=== PATIENT | male | born 1990 | race American Indian/Alaskan Native ===

== ENCOUNTER 2019-07-04 15:55 | Inpatient (IN) | payer OTHER ==
[2019-07-04] MEDS ORDERED: ATROVENT IH ONE ×2 (16:06→16:35)
[2019-07-04] MEDS ORDERED: PROVENTIL IH ONE ×3 (16:06→18:43)
[2019-07-04] MEDS ORDERED: MAGNESIUM SULFATE 2GM/50ML 2 GM/50 ML BAG IV ONE (16:28)
[2019-07-04] MEDS ORDERED: SOLU-Medrol IV ONE (16:28)
[2019-07-04] MEDS ORDERED: TESSALON PERLES PO ONE (16:36)
--- NOTE | 2019-07-04 17:19 | Emergency Department Report ---
ED Asthma HPI - General Chief Complaint: Adult Asthma Stated Complaint: ASTHMA ATTACK Time Seen by Provider: 07/04/19 16:27 Source: patient Mode of arrival: Ambulatory Limitations: No Limitations - History of Present Illness Initial Comments: 28-year-old male with a past medical history asthma presents to the hospital complains asthma exacerbation since last night. Patient developed a dry cough and had increased wheezing and bronchospasm throughout the day not alleviated by home nebs or inhaler treatment. Patient's room air saturations 87 to 93% upon arrival. Patient denies fever, pain, calf tenderness, leg edema, or recent travel. He has tried BiPAP support hospitalization has denies previous history of intubations. PMD: [facility] practice - Related Data Allergies Allergy/AdvReac Type Severity Reaction Status Date / Time No Known Allergies Allergy Unverified 07/04/19 15:57 ED Review of Systems ROS: Stated complaint: ASTHMA ATTACK Other details as noted in HPI Comment: All other systems reviewed and negative ED Past Medical Hx - Past Medical History Previous Medical History?: Yes Hx Asthma: Yes - Surgical History Past Surgical History?: No - Social History Smoking Status: Never Smoker Substance Use Type: None ED Physical Exam - General Limitations: No Limitations General appearance: alert - Head Head exam: Present: atraumatic - Eye Eye exam: Present: normal appearance - ENT ENT exam: Present: normal exam - Neck Neck exam: Present: normal inspection - Respiratory Respiratory exam: Present: wheezes. Absent: chest wall tenderness - Cardiovascular Cardiovascular Exam: Present: regular rate, tachycardia - GI/Abdominal GI/Abdominal exam: Present: soft. Absent: distended, tenderness - Extremities Exam Extremities exam: Present: normal inspection. Absent: tenderness, calf tenderness - Back Exam Back exam: Present: normal inspection - Neurological Exam Neurological exam: Present: alert, oriented X3. Absent: motor sensory deficit - Psychiatric Psychiatric exam: Present: normal affect - Skin Skin exam: Present: warm ED Course Vital Signs 07/04/19 07/04/19 07/04/19 15:57 16:38 16:45 Temperature 98.6 F 99.8 F H Pulse Rate 122 H 111 H Pulse Rate [ Anterior Bilateral Throughout] Respiratory 26 H 26 H Rate Respiratory Rate [Anterior Bilateral Throughout] Blood Pressure 185/85 Blood Pressure 194/100 [Right] O2 Sat by Pulse 87 87 94 Oximetry 07/04/19 07/04/19 07/04/19 17:00 18:01 19:14 Temperature Pulse Rate 106 H Pulse Rate [ 110 H Anterior Bilateral Throughout] Respiratory 28 H Rate Respiratory 15 Rate [Anterior Bilateral Throughout] Blood Pressure 185/85 171/85 Blood Pressure [Right] O2 Sat by Pulse 95 90 Oximetry 07/04/19 19:15 Temperature 99.2 F Pulse Rate 104 H Pulse Rate [ Anterior Bilateral Throughout] Respiratory 20 Rate Respiratory Rate [Anterior Bilateral Throughout] Blood Pressure Blood Pressure 145/81 [Right] O2 Sat by Pulse 94 Oximetry ED Medical Decision Making - Lab Data Result diagrams: 07/04/19 19:02 07/04/19 19:02 Lab Results 07/04/19 07/04/19 07/04/19 Range/Units 19:02 19:02 19:02 WBC 12.3 H (4.5-11.0) K/mm3 RBC 5.18 H (3.65-5.03) M/mm3 Hgb 14.9 (11.8-15.2) gm/dl Hct 44.6 (35.5-45.6) % MCV 86 (84-94) fl MCH 29 (28-32) pg MCHC 33 (32-34) % RDW 14.7 (13.2-15.2) % Plt Count 298 (140-440) K/mm3 [place] % (Auto) 2.1 (0.0-7.3) % Eos % (Auto) 0.1 (0.0-4.3) % [place] # 0.3 (0.0-0.8) K/mm3 Eos # 0.0 (0.0-0.4) K/mm3 Baso # 0.0 (0.0-0.1) K/mm3 Seg Neutrophils # 11.4 H (1.8-7.7) K/mm3 VBG pH 7.386 (7.320-7.420) Sodium (137-145) mmol/L Potassium (3.6-5.0) mmol/L Chloride (98-107) mmol/L Carbon Dioxide (22-30) mmol/L Anion Gap mmol/L BUN (9-20) mg/dL Creatinine (0.8-1.5) mg/dL Estimated GFR ml/min BUN/Creatinine Ratio % Glucose (75-100) mg/dL Lactic Acid 4.20 H* (0.7-2.0) mmol/L Calcium (8.4-10.2) mg/dL 07/04/19 Range/Units 19:02 WBC (4.5-11.0) K/mm3 RBC (3.65-5.03) M/mm3 Hgb (11.8-15.2) gm/dl Hct (35.5-45.6) % MCV (84-94) fl MCH (28-32) pg MCHC (32-34) % RDW (13.2-15.2) % Plt Count (140-440) K/mm3 [place] % (Auto) (0.0-7.3) % Eos % (Auto) (0.0-4.3) % [place] # (0.0-0.8) K/mm3 Eos # (0.0-0.4) K/mm3 Baso # (0.0-0.1) K/mm3 Seg Neutrophils # (1.8-7.7) K/mm3 VBG pH (7.320-7.420) Sodium 139 (137-145) mmol/L Potassium 3.9 (3.6-5.0) mmol/L Chloride 98.2 (98-107) mmol/L Carbon Dioxide 23 (22-30) mmol/L Anion Gap 22 mmol/L BUN 10 (9-20) mg/dL Creatinine 0.8 (0.8-1.5) mg/dL Estimated GFR > 60 ml/min BUN/Creatinine Ratio 13 % Glucose 100 (75-100) mg/dL Lactic Acid (0.7-2.0) mmol/L Calcium 9.9 (8.4-10.2) mg/dL - Radiology Data Radiology results: report reviewed CHEST 2 VIEWS INDICATION / CLINICAL INFORMATION: sob, wheeze. COMPARISON: None available. FINDINGS: SUPPORT DEVICES: None. HEART / MEDIASTINUM: No significant abnormality. LUNGS / PLEURA: Lungs are mildly hyperinflated. There is focal parenchymal disease projecting within the left lung base worrisome for pneumonia. No pleural effusion. No pneumothorax. ADDITIONAL FINDINGS: No significant additional findings. IMPRESSION: 1. Findings concerning for the possibility of left basilar pneumonia. 2. Lungs are hyperinflated suggesting asthma/COPD. - Medical Decision Making pt will be admitted for further tx pt received nebs, mag, solumedrol and continues to have wheezing and require nasal cannula o2 for hypoxia pt received azithromycin and rocephin culture pending elevated lactic acid, 30ml/kg - Differential Diagnosis asthma, pneumonia, bronchitis, pneumothorax Critical Care Time: No Critical care attestation.: If time is entered above; I have spent that time in minutes in the direct care of this critically ill patient, excluding procedure time. ED Disposition Clinical Impression: Pneumonia, Acute asthma exacerbation, Hypoxia Disposition: OP ADMIT IP TO THIS HOSP Is pt being admited?: Yes Does the pt Need Aspirin: No Condition: Stable Time of Disposition: 20:29 (case d/w Dr man at 9:07)
--- NOTE | 2019-07-04 17:32 | XRay Report ---
CHEST 2 VIEWS INDICATION / CLINICAL INFORMATION: sob, wheeze. COMPARISON: None available. FINDINGS: SUPPORT DEVICES: None. HEART / MEDIASTINUM: No significant abnormality. LUNGS / PLEURA: Lungs are mildly hyperinflated. There is focal parenchymal disease projecting within the left lung base worrisome for pneumonia. No pleural effusion. No pneumothorax. ADDITIONAL FINDINGS: No significant additional findings. IMPRESSION: 1. Findings concerning for the possibility of left basilar pneumonia. 2. Lungs are hyperinflated suggesting asthma/COPD. Signer Name: Anastasia Almonte MD Signed: 07/04/2019 5:27 PM Workstation Name: [id number]
[2019-07-04] MEDS ORDERED: ZITHROMAX PO ONE (17:41)
[2019-07-04 19:26] LABS: Hematocrit 44.6 % (35.5-45.6); Hemoglobin 14.9 gm/dl (11.8-15.2); Mean Corpuscular HGB Conc 33 % (32-34); Mean Corpuscular Volume 86 fl (84-94); Platelet Count 298 K/mm3 (140-440); Red Blood Count 5.18 M/mm3 (3.65-5.03); Red Cell Distribution Width 14.7 % (13.2-15.2)
[2019-07-04] MEDS ORDERED: NACL 0.9% 1000 ML IV ONE (20:02)
[2019-07-04] MEDS ORDERED: ROCEPHIN/NS 1 GM/50 ML 1 GM/50 ML BAG IV ONE (20:03)
[2019-07-04] MEDS ORDERED: NACL 0.9% 500 ML 500 ML ONE (20:08)
[2019-07-04 20:09] LABS: Eosinophils % (Auto) 0.1 % (0.0-4.3); Monocytes # (Auto) 0.3 K/mm3 (0.0-0.8); Monocytes % (Auto) 2.1 % (0.0-7.3)
[2019-07-04 20:41] LABS: BUN/Creatinine Ratio 13; Blood Urea Nitrogen 10 mg/dL (9-20); Calcium 9.9 mg/dL (8.4-10.2); Hemolysis Index 4
--- NOTE | 2019-07-04 21:45 | History and Physical Report ---
History of Present Illness Date of examination: 07/04/19 History of present illness: 28 year old man with history of asthma comes emergency room with complaints of shortness of breath started last night, cough productive of yellow phlegm, chills. He state that is nebulizer treatments did not provide much relief eview Of Systems: Constitutional: no weight loss, fever, chills Ears, eyes, nose, mouth and throat: no nasal congestion, no nasal discharge, no sinus pressure, blurry vision, diplopia Neck: No neck pain or rigidity. Cardiovascular: No palpitations, chest pain Respiratory: + shortness of breath, cough Gastrointestinal: No hematochezia, abdominal pain Genitourinary : no dysuria, frequency , hematuria Musculoskeletal: no muscle ache , joint pain Integumentary: no rash, no pruritis Neurological: no parathesias, focal weakness Endocrine: no cold or heat intolerance, no polyuria or polydipsia Hematologic/Lymphatic: no easy bruising, no easy bleeding, no gland swelling Allergic/Immunologic: no urticaria, no angioedema. PAST MEDICAL HISTORY:asthma PAST SURGICAL HISTORY: foot Surgery FAMILY HISTORY:hypertension, diabetes SOCIAL HISTORY: Denies tobacco, drugs, social alcohol Medications and Allergies Allergies Allergy/AdvReac Type Severity Reaction Status Date / Time No Known Allergies Allergy Unverified 07/04/19 15:57 Exam - Physical Exam Narrative exam: General Apperance: The patient sitting in bed no acute distress HEENT: Normocephalic, atraumatic. Pupils equally round and reactive to light, extraocular movement intact, and no sclericterus or JVD or thyromegaly or nodule. Neck supple, no carotid bruit, mucous membranes moist, no exudate or erythema Heart: S1-S2, regular is rhythm Lungs: wheezing bilaterally, breathing comfortable Abdomen: Positive bowel sounds, soft, nontender, nondistended, no organomegaly Extremities: No edema cyanosis clubbing Skin: no rash, nodule, warm and dry Neuro:CN 2 -12 intact, motor/sensory intact, speech is fluent - Constitutional Vitals: Temp Pulse Resp BP Pulse Ox 99.2 F 104 H 20 145/81 94 07/04/19 19:15 07/04/19 19:15 07/04/19 19:15 07/04/19 19:15 07/04/19 19:15 Results - Labs CBC & Chem 7: 07/04/19 19:02 07/04/19 19:02 Labs: Abnormal lab results 07/04/19 07/04/19 Range/Units 19:02 19:02 WBC 12.3 H (4.5-11.0) K/mm3 RBC 5.18 H (3.65-5.03) M/mm3 Seg Neutrophils # 11.4 H (1.8-7.7) K/mm3 Lactic Acid 4.20 H* (0.7-2.0) mmol/L - Imaging and Cardiology Chest x-ray: report reviewed Assessment and Plan Assessment Asthma exacerbation Community-acquired pneumonia Plan Admit to medicine Start high-dose steroids, nebulizer treatments,levaquin DVT prophylaxis
[2019-07-04] MEDS ORDERED: SODIUM CHLORIDE FLUSH SYRINGE 10 ML IV PRN (22:17)
[2019-07-04] MEDS ORDERED: ZOFRAN IV PRN (22:17)
[2019-07-04] MEDS ORDERED: TYLENOL PO PRN (22:17)
[2019-07-04 22:32] LABS: Basophils % (Manual) 0 % (0.0-1.8); Eosinophils % (Manual) 0 % (0.0-4.3); Large Platelets 1+; Platelet Estimate Consistent w Auto; RBC Morphology Normal; Total Cells Counted 100
[2019-07-04] MEDS ORDERED: SOLU-Medrol ONE (22:34)
[2019-07-04] MEDS ORDERED: DUONEB *Not for PRN Use IH ONE (23:05)
[2019-07-04] MEDS: DUONEB *Not for PRN Use IH SCH (23:05)
[2019-07-05] MEDS: DUONEB *Not for PRN Use IH SCH ×4 (01:42→20:41)
[2019-07-05] MEDS: TESSALON PERLES PO PRN ×2 (02:02→17:13)
[2019-07-05 05:22] LABS: Mean Corpuscular HGB Conc 34 % (32-34); Mean Corpuscular Volume 85 fl (84-94); Platelet Count 293 K/mm3 (140-440); Red Blood Count 4.82 M/mm3 (3.65-5.03); Red Cell Distribution Width 14.7 % (13.2-15.2)
[2019-07-05 05:34] LABS: BUN/Creatinine Ratio 14; Blood Urea Nitrogen 10 mg/dL (9-20); Calcium 8.7 mg/dL (8.4-10.2); Hemolysis Index 0
[2019-07-05 06:19] LABS: Total Cells Counted 100
[2019-07-05 06:20] LABS: Basophils % (Manual) 0 % (0.0-1.8); Eosinophils % (Manual) 0 % (0.0-4.3); Platelet Estimate Consistent w Auto; RBC Morphology Normal
[2019-07-05] MEDS ORDERED: PROVENTIL IH ONE (08:15)
[2019-07-05] MEDS: LEVAQUIN 750MG/150ML 750 MG/150 ML BAG IV SCH (09:37)
[2019-07-05] MEDS: LOVENOX SUB-Q SCH (09:38)
[2019-07-05] MEDS: SODIUM CHLORIDE FLUSH SYRINGE 10 ML IV SCH ×2 (09:39→22:00)
[2019-07-05] MEDS ORDERED: LEVAQUIN PO SCH (10:00)
[2019-07-05] MEDS ORDERED: SOLU-Medrol IV SCH ×2 (10:00→23:00)
[2019-07-05] MEDS: MUCINEX ER PO SCH ×2 (13:37→22:00)
--- NOTE | 2019-07-05 15:19 | Progress Note ---
Assessment and Plan Acute hypoxic respiratory failure, POA - O2 saturation 87% on room air on admission - Due to acute asthma exacerbation and pneumonia Acute Asthma exacerbation Community-acquired pneumonia with sepsis, POA - Presented with leukocytosis, tachycardia, lactic acidosis and focal left basilar pneumonia HTN, uncontrolled DVT prophylaxis plan: -Continue to monitor patient admitted to [facility] - provide scheduled nebulizer breathing treatment and as needed - Placed on empiric steroid and antibiotic - will follow sputum culture, chest x-ray showed left basilar lobe pneumonia - Provide supplemental oxygen to keep oxygen saturation above 92% - Monitor BP, placed on Norvasc - Provide DVT prophylaxis with Lovenox. Brief History: 28 year old man with history of asthma comes emergency room with complaints of shortness of breath started last night, cough productive of yellow phlegm, chills. He state that is nebulizer treatments did not provide much relief. Radiological data: Chest x-ray: 1. Findings concerning for the possibility of left basilar pneumonia. 2. Lungs are hyperinflated suggesting asthma/COPD. Hospitalist Physical exam: GENERAL: well-developed and well-nourished AAM lying on bed appeared to be in no discomfort. HEENT: Normocephalic. Atraumatic. No conjunctival congestion or icterus. Patient has moist mucous membranes. NECK: Supple. Trachea midline. CHEST/LUNGS: diffuse wheezes auscultated bilaterally, breathing nonlabored. No crackles or rhonchi. HEART/CARDIOVASCULAR: Regular in rate and rhythm. S1 and S2 positive. ABDOMEN: Abdomen is soft, nontender. Patient has normal bowel sounds. SKIN: There is no rash. Warm and dry. NEURO: No focal motor deficit. Follows command. MUSCULOSKELETAL: No joint effusion or tenderness. EXTRIMITY: No edema, no cyanosis or clubbing. PSYCH: Cooperative. Subjective Date of service: 07/05/19 Interval history: Patient seen and examined. Medical records and medication list reviewed. No acute event overnight noted by the RN. Patient conjunctivae to complaints of difficulty breathing with exertion. Patient is tolerating diet. Complaints of cough, afebrile overnight Discussed plan of care at bedside with patient. Objective - Constitutional Vitals: Vital Signs - 12hr 07/05/19 07/05/19 07/05/19 05:48 07:55 08:10 Temperature 97.7 F Pulse Rate 111 H Pulse Rate [ 98 H Anterior Bilateral Throughout] Respiratory 20 Rate Respiratory 20 Rate [Anterior Bilateral Throughout] Blood Pressure 156/87 O2 Sat by Pulse 94 97 Oximetry 07/05/19 07/05/19 07/05/19 08:15 12:25 13:01 Temperature 99.0 F Pulse Rate 87 Pulse Rate [ 98 H 102 H Anterior Bilateral Throughout] Respiratory 24 Rate Respiratory 20 20 Rate [Anterior Bilateral Throughout] Blood Pressure 140/78 O2 Sat by Pulse 97 Oximetry - Labs CBC & Chem 7: 07/05/19 04:59 07/05/19 04:59 Labs: Abnormal lab results 07/04/19 07/04/19 07/04/19 Range/Units 19:02 19:02 20:26 WBC 12.3 H (4.5-11.0) K/mm3 RBC 5.18 H (3.65-5.03) M/mm3 Seg Neuts % (Manual) 93.0 H (40.0-70.0) % Lymphocytes % (Manual) 4.0 L (13.4-35.0) % Seg Neutrophils # 11.4 H (1.8-7.7) K/mm3 Seg Neutrophils # Man 11.4 H (1.8-7.7) K/mm3 Lymphocytes # (Manual) 0.5 L (1.2-5.4) K/mm3 Creatinine (0.8-1.5) mg/dL Glucose (75-100) mg/dL Lactic Acid 4.20 H* 4.20 H* (0.7-2.0) mmol/L 07/04/19 07/04/19 07/05/19 Range/Units 21:49 23:40 04:59 WBC 11.8 H (4.5-11.0) K/mm3 RBC (3.65-5.03) M/mm3 Seg Neuts % (Manual) 92.0 H (40.0-70.0) % Lymphocytes % (Manual) 7.0 L (13.4-35.0) % Seg Neutrophils # (1.8-7.7) K/mm3 Seg Neutrophils # Man 10.9 H (1.8-7.7) K/mm3 Lymphocytes # (Manual) 0.8 L (1.2-5.4) K/mm3 Creatinine (0.8-1.5) mg/dL Glucose (75-100) mg/dL Lactic Acid 4.30 H* 4.30 H* (0.7-2.0) mmol/L 07/05/19 Range/Units 04:59 WBC (4.5-11.0) K/mm3 RBC (3.65-5.03) M/mm3 Seg Neuts % (Manual) (40.0-70.0) % Lymphocytes % (Manual) (13.4-35.0) % Seg Neutrophils # (1.8-7.7) K/mm3 Seg Neutrophils # Man (1.8-7.7) K/mm3 Lymphocytes # (Manual) (1.2-5.4) K/mm3 Creatinine 0.7 L (0.8-1.5) mg/dL Glucose 126 H (75-100) mg/dL Lactic Acid (0.7-2.0) mmol/L
[2019-07-05] MEDS: NORVASC PO SCH (17:13)
[2019-07-05] MEDS: SOLU-Medrol IV SCH (17:13)
[2019-07-05] MEDS: PROVENTIL IH PRN (18:42)
[2019-07-05] MEDS: PULMICORT IH SCH (20:41)
[2019-07-06] MEDS: PROVENTIL IH PRN (00:06)
[2019-07-06] MEDS: PULMICORT IH SCH ×3 (00:09→20:16)
[2019-07-06] MEDS: TESSALON PERLES PO PRN ×2 (00:33→18:55)
[2019-07-06] MEDS: SOLU-Medrol IV SCH ×4 (00:33→18:54)
[2019-07-06] MEDS: DUONEB *Not for PRN Use IH SCH ×5 (04:10→20:16)
[2019-07-06] MEDS: LOVENOX SUB-Q SCH (09:27)
[2019-07-06] MEDS: LEVAQUIN 750MG/150ML 750 MG/150 ML BAG IV SCH (09:27)
[2019-07-06] MEDS: NORVASC PO SCH (09:28)
[2019-07-06] MEDS: MUCINEX ER PO SCH ×2 (09:28→22:37)
[2019-07-06] MEDS: SODIUM CHLORIDE FLUSH SYRINGE 10 ML IV SCH ×2 (09:30→22:37)
--- NOTE | 2019-07-06 16:48 | Progress Note ---
Assessment and Plan Acute hypoxic respiratory failure, POA - O2 saturation 87% on room air on admission - Due to acute asthma exacerbation and pneumonia Acute Asthma exacerbation Community-acquired pneumonia with sepsis, POA - Presented with leukocytosis, tachycardia, lactic acidosis and focal left basilar pneumonia HTN, uncontrolled DVT prophylaxis plan: -Continue to monitor patient to [facility] - provide scheduled nebulizer breathing treatment and as needed - Placed on empiric tapering steroid and antibiotic - chest x-ray showed left basilar lobe pneumonia - Provide supplemental oxygen to keep oxygen saturation above 92% as needed - Monitor BP, placed on Norvasc - Provide DVT prophylaxis with Lovenox. Disposition: possible d/c in the am Brief History: 28 year old man with history of asthma comes emergency room with complaints of shortness of breath started last night, cough productive of yellow phlegm, chills. He stated that his nebulizer treatments did not provide much relief. Radiological data: Chest x-ray: 1. Findings concerning for the possibility of left basilar pneumonia. 2. Lungs are hyperinflated suggesting asthma/COPD. Hospitalist Physical exam: GENERAL: well-developed and well-nourished AAM lying on bed appeared to be in no discomfort. HEENT: Normocephalic. Atraumatic. No conjunctival congestion or icterus. Patient has moist mucous membranes. NECK: Supple. Trachea midline. CHEST/LUNGS: diffuse wheezes auscultated bilaterally, breathing nonlabored. No crackles or rhonchi. HEART/CARDIOVASCULAR: Regular in rate and rhythm. S1 and S2 positive. ABDOMEN: Abdomen is soft, nontender. Patient has normal bowel sounds. SKIN: There is no rash. Warm and dry. NEURO: No focal motor deficit. Follows command. MUSCULOSKELETAL: No joint effusion or tenderness. EXTRIMITY: No edema, no cyanosis or clubbing. PSYCH: Cooperative. Subjective Date of service: 07/06/19 Interval history: Patient seen and examined. Medical records and medication list reviewed. No acute event overnight noted by the RN. Patient states he is feeing much better but still has difficulty breathing with exertion. Patient is tolerating diet. Improved cough, afebrile overnight Discussed plan of care at bedside with patient. Objective - Constitutional Vitals: Vital Signs - 12hr 07/06/19 07/06/19 07/06/19 05:22 09:13 09:28 Temperature 97.9 F Pulse Rate 73 Pulse Rate [ 97 H Anterior Bilateral Throughout] Respiratory 20 Rate Respiratory 20 Rate [Anterior Bilateral Throughout] Blood Pressure 132/69 137/52 O2 Sat by Pulse 99 98 Oximetry 07/06/19 07/06/19 07/06/19 09:31 12:36 14:13 Temperature 98.6 F Pulse Rate 77 79 Pulse Rate [ 104 H Anterior Bilateral Throughout] Respiratory 22 20 Rate Respiratory 20 Rate [Anterior Bilateral Throughout] Blood Pressure 137/52 124/62 O2 Sat by Pulse 99 97 Oximetry - Labs CBC & Chem 7: 07/05/19 04:59 07/05/19 04:59
[2019-07-07] MEDS: SOLU-Medrol IV SCH ×3 (00:14→15:22)
[2019-07-07] MEDS: PROVENTIL IH PRN (01:00)
[2019-07-07] MEDS: DUONEB *Not for PRN Use IH SCH ×3 (02:30→17:10)
[2019-07-07] MEDS: PULMICORT IH SCH (10:13)
[2019-07-07] MEDS: NORVASC PO SCH (10:37)
[2019-07-07] MEDS: LEVAQUIN 750MG/150ML 750 MG/150 ML BAG IV SCH (10:37)
[2019-07-07] MEDS: MUCINEX ER PO SCH (10:37)
[2019-07-07] MEDS: LOVENOX SUB-Q SCH (10:37)
[2019-07-07] MEDS: SODIUM CHLORIDE FLUSH SYRINGE 10 ML IV SCH (10:38)
[2019-07-07 13:15] VITALS: BP 155/88
--- NOTE | 2019-07-07 13:39 | Discharge Summary ---
Providers - Providers Date of Admission: 07/04/19 21:44 Date of discharge: 07/07/19 Attending physician: PRATIMA BELLO Primary care physician: MADHAVI HARMON Hospitalization Condition: Stable Hospital course: 28 year old man with history of asthma comes emergency room with complaints of shortness of breath started last night, cough productive of yellow phlegm, chill s. He stated that his nebulizer treatments did not provide much relief. Patient noted to be hypoxic in the ER and chest x-ray showed left basilar pneumonia. Patient was admitted to the hospital for further evaluation and management. - Patient monitored at [facility] - provided scheduled nebulizer breathing treatment and as needed, empiric tapering steroid and antibiotic - chest x-ray showed left basilar lobe pneumonia -treated with antibiotics - Provide supplemental oxygen to keep oxygen saturation above 92% as needed - Monitored BP, placed on Norvasc -stabilized - Provide DVT prophylaxis with Lovenox. - Assessed for home oxygen requirement on discharge - Counseled for compliance and recommended to have PCP as outpatient - His symptom improved clinically with supportive care - Patient was then discharged home in stable condition with outpatient follow-up Radiological data: Chest x-ray: 1. Findings concerning for the possibility of left basilar pneumonia. 2. Lungs are hyperinflated suggesting asthma/COPD. Discharge diagnosis: Acute hypoxic respiratory failure, POA - O2 saturation 87% on room air on admission - Due to acute asthma exacerbation and pneumonia Acute Asthma exacerbation Community-acquired pneumonia with sepsis, POA - Presented with leukocytosis, tachycardia, lactic acidosis and focal left basilar pneumonia HTN, uncontrolled DVT prophylaxis Disposition: home Hospitalist Physical exam: GENERAL: well-developed and well-nourished AAM lying on bed appeared to be in no discomfort. HEENT: Normocephalic. Atraumatic. No conjunctival congestion or icterus. Patient has moist mucous membranes. NECK: Supple. Trachea midline. CHEST/LUNGS: few wheezes auscultated bilaterally, breathing nonlabored. No crackles or rhonchi. HEART/CARDIOVASCULAR: Regular in rate and rhythm. S1 and S2 positive. ABDOMEN: Abdomen is soft, nontender. Patient has normal bowel sounds. SKIN: There is no rash. Warm and dry. NEURO: No focal motor deficit. Follows command. MUSCULOSKELETAL: No joint effusion or tenderness. EXTRIMITY: No edema, no cyanosis or clubbing. PSYCH: Cooperative. Disposition: DC- TO HOME OR SELFCARE Time spent for discharge: 34 minutes Core Measure Documentation - Palliative Care Palliative Care/ Comfort Measures: Not Applicable - Core Measures Any of the following diagnoses?: none Exam - Constitutional Vitals: Temp Pulse Resp BP Pulse Ox 97.8 F 87 20 155/88 97 07/07/19 12:25 07/07/19 12:25 07/07/19 12:25 07/07/19 12:25 07/07/19 12:25 Plan Activity: advance as tolerated Weight Bearing Status: Weight Bear as Tolerated Diet: low fat, low salt Prescriptions: levoFLOXacin [Levaquin] 750 mg PO QDAY #5 tablet guaiFENesin ER [Mucinex ER] 600 mg PO BID #10 tablet amLODIPine [Norvasc] 5 mg PO QDAY #30 tablet ALBUTEROL Inhaler (OR & NICU) [Proair] 2 puff IH QID PRN #1 vial PRN Reason: Shortness Of Breath ALBUTEROL NEB's [Proventil 0.083% NEBS] 2.5 mg IH Q4HR PRN #30 nebu PRN Reason: Wheezing Montelukast (Nf) [Singulair (Nf)] 5 mg PO QPM #30 tab.chew Budesonide/Formoterol Fumarate [Symbicort 160-4.5 Mcg Inhaler] 10.2 gm IH BID #1 hfa.aer.ad
== END 2019-07-07 18:11 | disposition home or self-care (01) | DRG 871 ==
LOC: ED 15:55 → 3A 21:44
PROVIDERS: ADMIT Internal Medicine; ATTEND Internal Medicine
DX: A41.9 Sepsis, unspecified organism (principal); J18.9 Pneumonia, unspecified organism; J96.01 Acute respiratory failure with hypoxia; J45.901 Unspecified asthma with (acute) exacerbation; I10 Essential (primary) hypertension; Z83.3 Family history of diabetes mellitus; Z82.49 Family history of ischemic heart disease and other diseases of the circulatory system; Z79.899 Other long term (current) drug therapy
CPT/HCPCS: 36415; 71046; 80048; 82140; 82805; 85007; 85025; 87040; 94640; 94644; 94760; 96365; 96367; G0378; J0696; J1650; J1956; J2930; J3475; J7030; J7040